=== PATIENT | female | born 1960 | race Caucasian/White ===

== ENCOUNTER → 2023-08-06 06:29 | Day surgery (SDC) | payer OTHER, SELFPAY | LOC: GI 06:29 | PROVIDERS: ATTENDING PHYSICIAN Internal Medicine | DX: Z12.11 Encounter for screening for malignant neoplasm of colon (principal); Z80.0 Family history of malignant neoplasm of digestive organs; K64.9 Unspecified hemorrhoids | CPT/HCPCS: G0105 ==

== ENCOUNTER → 2023-08-07 06:31 | Day surgery (SDC) | payer OTHER, SELFPAY | LOC: GI 06:31 | PROVIDERS: ATTENDING PHYSICIAN Internal Medicine Gastroenterology | DX: Z12.11 Encounter for screening for malignant neoplasm of colon (principal); K57.30 Diverticulosis of large intestine without perforation or abscess without bleeding; K64.8 Other hemorrhoids; Z80.0 Family history of malignant neoplasm of digestive organs | CPT/HCPCS: G0105 ==

== ENCOUNTER 2024-04-11 10:22 | Emergency (ER) | payer OTHER, SELFPAY ==
[2024-04-11 10:30] VITALS: BP 134/94
--- NOTE | 2024-04-11 11:04 | ED.MUSCINJ ---
HPI-Injury
General
Chief Complaint: Fall
Source: patient
Exam Limitations: none
Time Seen by Provider: 04/11/24 10:59
History of Present Illness-Injury
Initial Injury comments:
63-year-old female presents after trip and fall yesterday. She twisted her right ankle and then fell onto her left side. She complains of left rib pain right knee and right ankle pain. She has a history of reconstructive surgery to her right
ankle and knee. She is not anticoagulated. She did not hit her head. Her left rib hurts when she takes a deep breath but she denies shortness of breath. She notes swelling and bruising to the lateral aspect of the right ankle.
Past History
Past History
ED Past Medical History: Cancer (Breast CA) and Other (Anemia)
ED Past Surgical History: None, Cholecystectomy, Gynecological (Hysterectomy, Bilateral Mastectomy D&C) and Other (gastric bypass, Splenectomy)
Social History
Tobacco: Former smoker
Alcohol: None
Personal:
Living: with family
Phy Exam
Physical Exam
Physical Exam:
General: Well-appearing slightly anxious female no acute respiratory distress
HEENT: Normocephalic atraumatic
Heart: Regular rate and rhythm no murmurs
Lungs: Breath sounds heard throughout clear bilaterally
Musculoskeletal exam: Right ankle tender with swelling and ecchymosis noted over the anterior lateral aspect of the ankle. There is no deformity. The right knee is tender anteriorly. The left anterior lateral ribs are tender
Skin is intact without laceration
Injury Course
Orders/Labs/Results
Orders:
Orders
04/11/24 11:03
CR Ankle - Right Min 3 Views * Urgent
Comment:
Reason For Exam: fall
CR Knee- Right 4 Or More View* Urgent
Comment:
Reason For Exam: fall
CR Ribs-left 3 Vw W/pa Chest Urgent
Comment:
Reason For Exam: fall
MDM/Problems Addressed
Differential Diagnosis Includes:
Mechanical fall with right ankle right knee and left rib pain. Will order x-rays to evaluate for fracture, pneumothorax versus dislocation
*Critical Care Note
Total Time (30-74mins, 75-104mins- exclusive of procedures): Not Applicable
Update Note
Update Note:
X-rays of the left ribs right knee and ankle were personally reviewed and are negative for acute fractures. Reassured patient. Suspect chest wall contusion. Suspect ankle sprain. Patient is ambulatory with minimal difficulty. Stable for
discharge. Patient expresses her desire to go home to her son
ED Attending Note
-
Portions of this chart may have been created with voice recognition software.� Occasional wrong word or��sound alike� substitutions may have occurred due to the inherent limitations of voice recognition software.
Discharge Plan
Departure
Patient Disposition: Home (Routine Discharge)
Date of Disposition: 04/11/24
Time of Disposition: 14:16
Patient with high blood pressure during this ER visit?: No
Discharge Problem:
Ankle sprain, Chest wall contusion
Instructions: Contusion (DC)
Prescriptions:
No Action
cyanocobalamin (vitamin B-12) [Vitamin B-12] 2,500 mcg Tablet, Sublingual
2,500 mcg PO DAILY Qty: 0
ferrous sulfate 325 mg (65 mg iron) Tablet
325 mg PO DAILY Qty: 0
Patient Comments:
unsure of mg
cholecalciferol (vitamin D3) [Vitamin D3] 25 mcg (1,000 unit) Capsule
25 mcg PO DAILY
alprazolam 1 mg tablet
0.25 - 1 mg PO BID PRN (Reason: ANXIETY)
Patient Comments:
02/26/2023: LAST FILLED 02/15/23, 60 TABS FOR 30 DAYS FROM [facility]#[id number]
Rx Instructions:
PT ONLY TAKES IF SHE'S HAVING ANXIETY DURING HER SON'S TANTRUMS
escitalopram oxalate 10 mg tablet
10 mg PO DAILY
oxycodone 10 mg tablet
10 mg PO BID PRN (Reason: BREAKTHROUGH PAIN)
Patient Comments:
02/26/2023: LAST FILLED 02/13/23, 60 TABS FOR 30 DAYS FROM [facility]#[id number]
oxycodone [OxyContin] 60 mg tablet,oral only,ext.rel.12 hr
60 mg PO Q12H
Patient Comments:
02/26/2023: LAST FILLED 02/08/23, 60 TABS FOR 30 DAYS FROM [id number]
pantoprazole 40 mg tablet,delayed release (DR/EC)
40 mg PO DAILY Qty: 30 0RF
Referrals:
Mike Ch MD [Family Provider] -
Activity Restrictions/Additional Instructions:
Use ibuprofen or Tylenol for pain. Ice to the sore spots. Return if worse otherwise follow-up with your doctor
Interventions
Interventions:
*Risk Screen - Suicide Last Done: 04/11/24 10:30
*General Assessment Last Done: 04/11/24 11:44
*Neglect/Abuse Screening Last Done: 04/11/24 10:30
*ED COVID-19 Vaccine History Last Done: 04/11/24 11:44
ED- Neurological Assessment Last Done: 04/11/24 11:44
Discharge Date and Time
Print Language: QATARI
[2024-04-11 14:28] VITALS: BP 147/91
[2024-04-11 14:31] VITALS: BP 147/91
== END 2024-04-11 14:32 | disposition home or self-care (01) ==
LOC: EMR 10:22
PROVIDERS: EMERGENCY PHYSICIAN Emergency Medicine; FAMILY PHYSICIAN Family Medicine
DX: S93.401A Sprain of unspecified ligament of right ankle, initial encounter (principal); S20.219A Contusion of unspecified front wall of thorax, initial encounter; S90.01XA Contusion of right ankle, initial encounter; W01.0XXA Fall on same level from slipping, tripping and stumbling without subsequent striking against object, initial encounter; D64.9 Anemia, unspecified; Z85.3 Personal history of malignant neoplasm of breast; Z87.891 Personal history of nicotine dependence; Z98.84 Bariatric surgery status; Z90.13 Acquired absence of bilateral breasts and nipples; Z90.81 Acquired absence of spleen; Z88.6 Allergy status to analgesic agent; Z88.5 Allergy status to narcotic agent
CPT/HCPCS: 99284; 71101; 73564; 73610

== ENCOUNTER 2024-05-30 17:46 | Emergency (ER) | payer OTHER, SELFPAY ==
[2024-05-30 18:04] VITALS: BP 143/95
--- NOTE | 2024-05-30 18:09 | ED.GENMED ---
ED Provider Triage
<Camille Card NP - Last Filed: 05/30/24 18:19>
-
Patient seen by provider in Triage?: Seen in Triage
Attestation: A medical screening examination has been initiated by a qualified medical provider. Based on the assessment performed at this time, it has been determined that an emergent medical condition may exist and the patient has been informed
that further medical evaluation and possible additional diagnostic testing may be needed.
HPI: 64-year-old female with history of iron deficiency anemia, chronic back pain under pain management, Presents for headache that started 4 weeks ago, daily, intermittent, Tylenol helps, frontal, now headache is 6/10. Developed nausea about 3
weeks ago Zofran as needed. 2 weeks ago started with diarrhea. Imodium hasn't helped. Had 'a lot' of blood in stools 3 days ago and a little yesterday. States every day for the past 2 weeks anytime she eats or drinks something. Has generalized
abdominal pain.
Dr Ch phone consult and started on Lomotil which has helped. Last diarrhea 8 a.m, is holding fluids down
GENERAL: Alert , in no apparent distress
EYE: No visual abnormalities.
NECK: Trachea midline
ENT: No visible abnormalities.
LUNGS: No acute respiratory distress
NEUROLOGICAL: Alert and oriented
SKIN: Skin intact. No visible changes.
MUSCULOSKELETAL: Moving extremities normally
PSYCH: Normal and appropriate interaction.
This is a medical evaluation conducted in person to initiate diagnostic evaluation and provide initial therapeutics. Please see further documentation by the treating clinician.
History of Present Illness
<Camille Card NP - Last Filed: 05/30/24 18:19>
General
Chief Complaint: Rectal Bleeding
Time Seen by Provider: 05/30/24 20:24
<Hugo Peterson PA-C - Last Filed: 05/31/24 00:06>
History of Present Illness
History of Present Illness:
64 yo female presents to the Emergency Department for evaluation of generalized abdominal pain and N/V/D x 2 weeks. N/V has improved however over the past 3 days she has noted bloody stools. States 'no stool, just blood'. This did improve today. No
fever, chills or sweats but does report severe weakness. 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
Past History
<Camille Card SAMPLE TAKER OPERATOR - Last Filed: 05/30/24 18:19>
Past History
ED Past Medical History: Cancer (Breast CA) and Other (Anemia)
ED Past Surgical History: None, Cholecystectomy, Gynecological (Hysterectomy, Bilateral Mastectomy D&C) and Other (gastric bypass, Splenectomy)
Social History
Tobacco: Former smoker
Alcohol: None
Personal:
Living: with family
Review of Systems
<Hugo Peterson PA-C - Last Filed: 05/31/24 00:06>
Review of Systems
Allergies reviewed?: Yes
All Other Systems: ROS reviewed and negative except as documented in HPI and ROS
Phy Exam
<Hugo Peterson PA-C - Last Filed: 05/31/24 00:06>
Physical Exam
Physical Exam:
GEN: Well appearing, NAD, WDWN
HEENT: Oral mucosa moist, no scleral icterus
Cardiac: Regular rate
Lung: No respiratory distress, no tachypnea
Abdomen: Soft, moderate diffuse tenderness. No rigidity. Prior laparotomy incisions with soft ventral hernia
MSK: No gross deformity or injuries
Skin: Good color, no pallor or jaundice, no rashes
Neuro: AO x3, moves all extremities freely
Psych: Calm, cooperative
Course
<Camille Card, SAMPLE TAKER OPERATOR - Last Filed: 05/30/24 18:19>
Orders/Labs/Results
Orders:
Orders
05/30/24 18:13
Complete Blood Count/With Diff Urgent
Comprehensive Metabolic Panel Urgent
Lipase Urgent
05/30/24 18:18
CT Abd/Pel (IV only)-[facility] only Urgent
Comment:
Reason For Exam: general abd pain, one episode bloody diarrhea
05/30/24 20:33
0.9% Sodium Chloride 1000 ml [Nss] 1,000 ml IV BOLUS
05/30/24 22:41
Potassium Chloride [KCl] 40 meq PO NOW STA
Abnormal Lab Results
05/30/24
18:13
MCH 26.1 L pg
(27.0-31.0)
MCHC 31.8 L g/dL
(33.0-37.0)
RDW 16.0 H %
(11.5-14.5)
Absolute Lymphs (auto) 3.7 H 10^3/uL
(1.2-3.4)
Absolute Monos (auto) 0.8 H 10^3/uL
(0.1-0.6)
Neutrophils % 32.3 L %
(42.2-75.2)
Lymphocytes % 51.5 H %
(20.5-51.1)
Monocytes % 11.5 H %
(1.7-9.3)
Potassium 3.4 L mmol/L
(3.5-5.1)
Chloride 97 L mmol/L
(98-107)
Carbon Dioxide 33 H mmol/L
(22-30)
BUN 5 L mg/dl
(7-17)
Glucose 115 H mg/dl
(70-99)
Alkaline Phosphatase 138 H U/L
(38-126)
Total Protein 6.2 L g/dl
(6.3-8.2)
Albumin 3.4 L g/dl
(3.5-5.0)
05/30/24 18:13
05/30/24 18:13
Vital Signs
Initial and Last Documented VS:
Initial Vital Signs
Temp Pulse Resp BP Pulse Ox
98.6 F 107 18 143/95 97
05/30/24 18:04 05/30/24 18:04 05/30/24 18:04 05/30/24 18:04 05/30/24 18:04
Last Documented Vital Signs
Temp Pulse Resp BP Pulse Ox
98.6 F 107 18 143/95 95
05/30/24 18:04 05/30/24 18:04 05/30/24 18:04 05/30/24 18:04 05/30/24 22:00
<Hugo Peterson PA-C - Last Filed: 05/31/24 00:06>
Orders/Labs/Results
Orders:
Orders
05/30/24 18:13
Complete Blood Count/With Diff Urgent
Comprehensive Metabolic Panel Urgent
Lipase Urgent
05/30/24 18:18
CT Abd/Pel (IV only)-[facility] only Urgent
Comment:
Reason For Exam: general abd pain, one episode bloody diarrhea
05/30/24 20:33
0.9% Sodium Chloride 1000 ml [Nss] 1,000 ml IV BOLUS
05/30/24 22:41
Potassium Chloride [KCl] 40 meq PO NOW STA
Abnormal Lab Results
05/30/24
18:13
MCH 26.1 L pg
(27.0-31.0)
MCHC 31.8 L g/dL
(33.0-37.0)
RDW 16.0 H %
(11.5-14.5)
Absolute Lymphs (auto) 3.7 H 10^3/uL
(1.2-3.4)
Absolute Monos (auto) 0.8 H 10^3/uL
(0.1-0.6)
Neutrophils % 32.3 L %
(42.2-75.2)
Lymphocytes % 51.5 H %
(20.5-51.1)
Monocytes % 11.5 H %
(1.7-9.3)
Potassium 3.4 L mmol/L
(3.5-5.1)
Chloride 97 L mmol/L
(98-107)
Carbon Dioxide 33 H mmol/L
(22-30)
BUN 5 L mg/dl
(7-17)
Glucose 115 H mg/dl
(70-99)
Alkaline Phosphatase 138 H U/L
(38-126)
Total Protein 6.2 L g/dl
(6.3-8.2)
Albumin 3.4 L g/dl
(3.5-5.0)
05/30/24 18:13
05/30/24 18:13
Vital Signs
Initial and Last Documented VS:
Initial Vital Signs
Temp Pulse Resp BP Pulse Ox
98.6 F 107 18 143/95 97
05/30/24 18:04 05/30/24 18:04 05/30/24 18:04 05/30/24 18:04 05/30/24 18:04
Last Documented Vital Signs
Temp Pulse Resp BP Pulse Ox
98.6 F 107 18 143/95 95
05/30/24 18:04 05/30/24 18:04 05/30/24 18:04 05/30/24 18:04 05/30/24 22:00
<Hugo Peterson PA-C - Last Filed: 05/31/24 00:06>
MDM/Problems Addressed
MDM/Problems Addressed:
Patient is noted to have generalized dilation of the large and small bowel with mild inflammatory change, likely persistent enterocolitis. Given the duration of symptoms this would not likely represent a viral etiology rather a potential foodborne
bacterium. She was unable to provide stool specimen in the ED, will send home with orders for outpatient stool specimen and antibiotics to be initiated after the specimen results. Recommend GI follow-up if symptoms not improving
<Hugo Peterson PA-C - Last Filed: 05/31/24 00:06>
*Critical Care Note
Total Time (30-74mins, 75-104mins- exclusive of procedures): Not Applicable
ED Attending Note
<Camille Card NP - Last Filed: 05/30/24 18:19>
-
Portions of this chart may have been created with voice recognition software.� Occasional wrong word or��sound alike� substitutions may have occurred due to the inherent limitations of voice recognition software.
Discharge Plan
Departure
Patient Disposition: Home (Routine Discharge)
Date of Disposition: 05/30/24
Time of Disposition: 22:44
Patient with high blood pressure during this ER visit?: No
Discharge Problem:
Enterocolitis
Instructions: Colitis
Prescriptions:
New
amoxicillin-pot clavulanate 875-125 mg tablet
1 tab PO BID Qty: 14 0RF
No Action
cyanocobalamin (vitamin B-12) [Vitamin B-12] 2,500 mcg Tablet, Sublingual
2,500 mcg PO DAILY Qty: 0
ferrous sulfate 325 mg (65 mg iron) Tablet
325 mg PO DAILY Qty: 0
Patient Comments:
unsure of mg
cholecalciferol (vitamin D3) [Vitamin D3] 25 mcg (1,000 unit) Capsule
25 mcg PO DAILY
alprazolam 1 mg tablet
0.25 - 1 mg PO BID PRN (Reason: ANXIETY)
Patient Comments:
02/26/2023: LAST FILLED 02/15/23, 60 TABS FOR 30 DAYS FROM [facility]#[id number]
Rx Instructions:
PT ONLY TAKES IF SHE'S HAVING ANXIETY DURING HER SON'S TANTRUMS
escitalopram oxalate 10 mg tablet
10 mg PO DAILY
oxycodone 10 mg tablet
10 mg PO BID PRN (Reason: BREAKTHROUGH PAIN)
Patient Comments:
02/26/2023: LAST FILLED 02/13/23, 60 TABS FOR 30 DAYS FROM [id number]
oxycodone [OxyContin] 60 mg tablet,oral only,ext.rel.12 hr
60 mg PO Q12H
Patient Comments:
02/26/2023: LAST FILLED 02/08/23, 60 TABS FOR 30 DAYS FROM [id number]
pantoprazole 40 mg tablet,delayed release (DR/EC)
40 mg PO DAILY Qty: 30 0RF
Referrals:
Mike Ch MD [Family Provider] -
Activity Restrictions/Additional Instructions:
Please attempt to collect a stool specimen prior to starting the antibiotic, the stool specimen can be returned to the outpatient lab at the hospital or wellness center, if the stool specimen can be returned to the outpatient lab at the hospital or
wellness center during normal business hours
If your symptoms do not improve despite taking full course of antibiotic please consider following up with your GI specialist
Interventions
Interventions:
*Risk Screen - Suicide Last Done: 05/30/24 18:04
*General Assessment Last Done: 05/30/24 18:04
*Neglect/Abuse Screening Last Done: 05/30/24 18:04
ED- Fall Risk Assessment Last Done: 05/30/24 22:54
*ED COVID-19 Vaccine History Last Done: 05/30/24 20:39
*Nursing Disposition Last Done: 05/30/24 22:53
TU-Okcucc-Mrsenajdzj Assessment Last Done: 05/30/24 20:40
ED- Cardiac Assessment Last Done: 05/30/24 20:40
ED- Pulmonary Assessment Last Done: 05/30/24 20:40
Discharge Date and Time
Print Language: MONEGASQUE
[2024-05-30 18:37] LABS: ALT (SGPT) 23 U/L (0-35); AST (SGOT) 33 U/L (14-36); Albumin 3.4 g/dl (3.5-5.0); Alkaline Phosphatase 138 U/L (38-126); Blood Urea Nitrogen 5 mg/dl (7-17); Calcium 9.2 mg/dl (8.4-10.2); Carbon Dioxide 33 mmol/L (22-30); Chloride 97 mmol/L (98-107); Glucose 115 mg/dl (70-99); Lipase 25 U/L (23-300); Potassium 3.4 mmol/L (3.5-5.1); Sodium 137 mmol/L (135-145); Total Bilirubin 0.5 mg/dl (0.2-1.3); Total Protein 6.2 g/dl (6.3-8.2); eGFR > 60.00
[2024-05-30 18:58] LABS: Hematocrit 40.2 % (37.0-47.0); Hemoglobin 12.8 g/dL (12.0-16.0); Mean Corp Hgb Conc. 31.8 g/dL (33.0-37.0); Mean Corpuscular Hgb 26.1 pg (27.0-31.0); Mean Platelet Volume 9.9 fL (7.4-10.4); Platelet Count 369 10^3/uL (130-400); White Blood Cell Count 7.1 10^3/uL (4.8-10.8)
[2024-05-30 19:01] LABS: % Basophils 0.6 % (0-2); % Eosinophils 3.7 % (0-6); % Immature Granulocytes 0.4 % (0-0.5); % Lymphocytes 51.5 % (20.5-51.1); % Monocytes 11.5 % (1.7-9.3); % Neutrophils 32.3 % (42.2-75.2); Absolute Eosinophils 0.3 10^3/uL (0-0.7); Absolute Lymphocytes 3.7 10^3/uL (1.2-3.4); Absolute Monocytes 0.8 10^3/uL (0.1-0.6); Absolute Neutrophils 2.3 10^3/uL (1.4-6.5); Nucleated Red Blood Cells % 0.3 %
[2024-05-30] MEDS: NSS 1000 IV (20:43)
[2024-05-30] MEDS: KCL 40 MEQ PO (22:51)
== END 2024-05-30 23:00 | disposition home or self-care (01) ==
LOC: EMR 17:46
PROVIDERS: EMERGENCY PHYSICIAN Emergency Medicine; FAMILY PHYSICIAN Family Medicine
DX: K52.9 Noninfective gastroenteritis and colitis, unspecified (principal); Z87.891 Personal history of nicotine dependence
CPT/HCPCS: 99285; 96360; 74177; 80053; 83690; 85025; Q9967

== ENCOUNTER 2024-08-15 12:56 | Emergency (ER) | payer OTHER, SELFPAY ==
[2024-08-15 13:09] VITALS: BP 174/89
--- NOTE | 2024-08-15 14:09 | ED.GENMED ---
History of Present Illness
General
Chief Complaint: Musculo-Skeletal Complaint
Source: patient
Time Seen by Provider: 08/15/24 13:47
History of Present Illness
History of Present Illness:
64-year-old female presents to the emergency room complaining of pain in her left hand. Patient is left-hand dominant. Patient states her developmentally delayed and nonverbal son grabbed her left hand causing pain immediately. This occurred 2
days ago. Patient continued have pain and swelling at the area. She has been taking ibuprofen without much improvement. No other complaints.
Past History
Past History
ED Past Medical History: Cancer (Breast CA) and Other (Anemia)
ED Past Surgical History: None, Cholecystectomy, Gynecological (Hysterectomy, Bilateral Mastectomy D&C) and Other (gastric bypass, Splenectomy)
Social History
Tobacco: Former smoker
Alcohol: None
Personal:
Living: with family
Phy Exam
Physical Exam
Physical Exam:
General: Awake, Alert, Oriented X3. No acute distress.
Vitals: unremarkable
Head: Atraumatic
Neuro: Nonfocal
Skin: Warm, dry, no rash
Extremities: Swelling and ecchymosis noted to the lateral aspect of the left hand over the metacarpals. There is tenderness palpation over the distal third and fourth metacarpal. Range of motion is intact however.
Course
Orders/Labs/Results
Orders:
Orders
08/15/24 13:11
Hand, Left 3 View [CR Hand - Left Min 3 Views] Urgent
Comment:
Reason For Exam: injury
08/15/24 14:09
Acetaminophen [Tylenol] 1,000 mg PO NOW STA
Vital Signs
Initial and Last Documented VS:
Initial Vital Signs
Temp Pulse Resp BP Pulse Ox
98.2 F 66 16 174/89 98
08/15/24 13:09 08/15/24 13:09 08/15/24 13:09 08/15/24 13:09 08/15/24 13:09
Last Documented Vital Signs
Temp Pulse Resp BP Pulse Ox
98.2 F 66 16 174/89 98
08/15/24 13:09 08/15/24 13:09 08/15/24 13:09 08/15/24 13:09 08/15/24 13:09
MDM/Problems Addressed
Differential Diagnosis Includes:
Fracture, contusion, dislocation
MDM/Problems Addressed:
Imaging confirms the presence of a distal metacarpal fracture. Patient will be placed in a ulnar gutter splint. Follow-up with hand as an outpatient.
*Radiology
Radiology exam reviewed: preliminary read by ED provider (Distal fourth metacarpal fracture noted)
*Pulse Oximetry
Patient hypoxic: no
*Critical Care Note
Total Time (30-74mins, 75-104mins- exclusive of procedures): Not Applicable
ED Attending Note
-
Portions of this chart may have been created with voice recognition software.� Occasional wrong word or��sound alike� substitutions may have occurred due to the inherent limitations of voice recognition software.
Discharge Plan
Departure
Patient Disposition: Home (Routine Discharge)
Date of Disposition: 08/15/24
Time of Disposition: 14:11
Patient with high blood pressure during this ER visit?: Yes
Discharge Problem:
Fracture of metacarpal base of left hand, closed
Instructions: Splint Care, Hand Fracture ED, BLOOD PRESSURE
Prescriptions:
No Action
cyanocobalamin (vitamin B-12) [Vitamin B-12] 2,500 mcg Tablet, Sublingual
2,500 mcg PO DAILY Qty: 0
ferrous sulfate 325 mg (65 mg iron) Tablet
325 mg PO DAILY Qty: 0
Patient Comments:
unsure of mg
cholecalciferol (vitamin D3) [Vitamin D3] 25 mcg (1,000 unit) Capsule
25 mcg PO DAILY
alprazolam 1 mg tablet
0.25 - 1 mg PO BID PRN (Reason: ANXIETY)
Patient Comments:
02/26/2023: LAST FILLED 02/15/23, 60 TABS FOR 30 DAYS FROM [id number]
Rx Instructions:
PT ONLY TAKES IF SHE'S HAVING ANXIETY DURING HER SON'S TANTRUMS
escitalopram oxalate 10 mg tablet
10 mg PO DAILY
oxycodone 10 mg tablet
10 mg PO BID PRN (Reason: BREAKTHROUGH PAIN)
Patient Comments:
02/26/2023: LAST FILLED 02/13/23, 60 TABS FOR 30 DAYS FROM [id number]
oxycodone [OxyContin] 60 mg tablet,oral only,ext.rel.12 hr
60 mg PO Q12H
Patient Comments:
02/26/2023: LAST FILLED 02/08/23, 60 TABS FOR 30 DAYS FROM [id number]
pantoprazole 40 mg tablet,delayed release (DR/EC)
40 mg PO DAILY Qty: 30 0RF
amoxicillin-pot clavulanate 875-125 mg tablet
1 tab PO BID Qty: 14 0RF
Referrals:
Mike Ch MD [Family Provider] -
Marcus Pham MD [Active] -
Activity Restrictions/Additional Instructions:
Your x-ray shows a fracture of the fourth metacarpal right in the area where you are tender. You should follow-up with the hand specialist at [facility] orth[facility], Dr. Pham or one of his associates.
Interventions
Interventions:
*Risk Screen - Suicide Last Done: 08/15/24 13:09
*Neglect/Abuse Screening Last Done: 08/15/24 13:09
*Nursing Disposition Last Done: 08/15/24 14:21
Discharge Date and Time
Discharge Date/Time: 08/15/24 14:22
Print Language: TRINIDADIAN
[2024-08-15] MEDS: TYLENOL 1000 MG PO (14:15)
== END 2024-08-15 14:22 | disposition home or self-care (01) ==
LOC: EMR 12:56
PROVIDERS: EMERGENCY PHYSICIAN Emergency Medicine; FAMILY PHYSICIAN Family Medicine
DX: S62.315A Displaced fracture of base of fourth metacarpal bone, left hand, initial encounter for closed fracture (principal); S60.222A Contusion of left hand, initial encounter; X58.XXXA Exposure to other specified factors, initial encounter; Z85.3 Personal history of malignant neoplasm of breast; Z87.891 Personal history of nicotine dependence; Z98.84 Bariatric surgery status; Z90.49 Acquired absence of other specified parts of digestive tract; Z90.13 Acquired absence of bilateral breasts and nipples; Z90.710 Acquired absence of both cervix and uterus
CPT/HCPCS: 29125; 99283; 73130